=== PATIENT | male | born 1950 | race African-American/Black ===

== ENCOUNTER 2019-09-20 09:13 | Emergency (ER) | payer MEDICARE, OTHER ==
[~2019-09-20] VITALS: Ht 180.3 cm; Wt 68.0 kg
[2019-09-20] MEDS ORDERED: SODIUM CHLORIDE 0.9% 500 ML IV ONE (09:49)
[2019-09-20 10:27] LABS: Albumin 3.5 g/dL (3.4-5.0); BUN/Creatinine Ratio 15.7; Calcium 9.1 mg/dL (8.5-10.1); Potassium 4.1 mmol/L (3.5-5.1)
[2019-09-20 10:31] LABS: Bilirubin, Total 0.8 mg/dL (0.2-1.0); Total Protein 7.2 g/dL (6.4-8.2)
[2019-09-20 13:21] LABS: White Blood Cell 6.5 10^3/uL (4.4-10.8)
[2019-09-20 13:22] LABS: Basophils # (auto) 0.1 uL; Basophils % (auto) 0.8 % (0.0-2.0); Eosinophils # (auto) 0.2 uL; Eosinophils % (auto) 3.6 % (0.0-7.0); Hematocrit 38.7 % (41.0-53.0); Lymphocytes # (auto) 1.4 uL; Lymphocytes % (auto) 22.1 % (10.0-50.0); Mean Corpuscular Hemoglobin 31.6 pg (28.0-32.0); Mean Corpuscular Hgb Conc. 33.5 g/dL (32.0-36.0); Mean Corpuscular Volume 94.3 fL (80.0-100.0); Monocytes # (auto) 0.4 uL; Monocytes % (auto) 6.5 % (0.0-12.0); Neutrophils # (auto) 4.4 uL; Nucleated Red Blood Cells % 0.1 %; Red Blood Cells 4.11 10^6/uL (4.5-5.90); Red Cell Distribution Width 13.2 % (11.8-14.3)
[2019-09-20 13:23] LABS: Platelet Count (auto) 253 10^3/uL (140-450)
[2019-09-20 13:34] VITALS: BP 153/91
[2019-09-20 14:30] LABS: Urine Bacteria NONE SEEN /hpf (None Seen); Urine Blood 1+ /uL (Negative); Urine Mucus FEW (None Seen); Urine Specific Gravity 1.014 (1.001-1.035); Urine WBC 6 /hpf (0 - 3)
== END 2019-09-20 16:06 | disposition home or self-care (01) ==
LOC: ER 09:13 → EDBD 09:13 → ER 16:06
DX: S09.8XXA Other specified injuries of head, initial encounter (principal); G80.9 Cerebral palsy, unspecified; W06.XXXA Fall from bed, initial encounter; Y93.89 Activity, other specified; Y92.092 Bedroom in other non-institutional residence as the place of occurrence of the external cause; Y99.8 Other external cause status
CPT/HCPCS: 36415; 70450; 80053; 81001; 85025; 85027; 99284; J7030

== ENCOUNTER 2019-12-02 17:09 | Inpatient (IN) | payer MEDICARE, OTHER ==
[~2019-12-02] VITALS: Ht 175.3 cm; Wt 60.3 kg
[2019-12-02 17:42] LABS: Basophils # (auto) 0 10 ^3/uL (0-0.2); Basophils % (auto) 0.3 % (0.0-2.0); Eosinophils # (auto) 0 10 ^3/uL (0-0.8); Hematocrit 32.6 % (41.0-53.0); Hemoglobin 10.7 g/dL (13.5-17.5); Lymphocytes # (auto) 0.3 10 ^3/uL (0.4-5.4); Mean Corpuscular Hemoglobin 30.7 pg (28.0-32.0); Mean Corpuscular Hgb Conc. 32.7 g/dL (32.0-36.0); Mean Corpuscular Volume 93.9 fL (80.0-100.0); Monocytes # (auto) 0.5 10 ^3/uL (0-1.3); Monocytes % (auto) 4.6 % (0.0-12.0); Neutrophils # (auto) 10.7 10 ^3/uL (1.6-8.6); Neutrophils % (auto) 92.1 % (37.0-80.0); Platelet Count (auto) 273 10^3/uL (140-450); Red Blood Cells 3.47 10^6/uL (4.5-5.90); Red Cell Distribution Width 13.6 % (11.8-14.3); White Blood Cell 11.7 10^3/uL (4.4-10.8)
[2019-12-02 17:59] LABS: Albumin 2.8 g/dL (3.4-5.0); Calcium 8.6 mg/dL (8.5-10.1); Potassium 3.7 mmol/L (3.5-5.1)
[2019-12-02] MEDS ORDERED: ACETAMINOPHEN 650 MG RECT SUPP PR ONE (18:00)
[2019-12-02 18:01] LABS: BUN/Creatinine Ratio 23.6; Bilirubin, Total 1.3 mg/dL (0.2-1.0); Total Protein 7.3 g/dL (6.4-8.2)
[2019-12-02 18:10] LABS: Urine Bacteria MANY /hpf (None Seen); Urine Blood 2+ /uL (Negative); Urine Hyaline Cast FEW /lpf (0 - 2); Urine Mucus FEW (None Seen); Urine Specific Gravity 1.017 (1.001-1.035); Urine WBC 422 /hpf (0 - 3); Urine WBC Clumps PRESENT /hpf (None Seen)
[2019-12-02] MEDS ORDERED: cefTRIAXone 1GM/50ML D5W 50 ML IV ONE ×2 (18:19→18:30)
[2019-12-02] MEDS ORDERED: DOCUSATE SOD 100 MG CAP PO PRN (19:00)
[2019-12-02] MEDS ORDERED: MORPHINE SULF INJ 2 MG/ML SYRINGE 1ML IV PRN ×2 (19:00)
[2019-12-02] MEDS ORDERED: HYDROcodone-ACET 5/325MG TAB PO PRN (19:00)
[2019-12-02] MEDS ORDERED: METOCLOPRAMIDE HCL 5MG/ml INJ 2ml VIAL IV PRN (19:00)
[2019-12-02] MEDS ORDERED: SODIUM CHLORIDE 0.9% 1,000 ML IV SCH (19:00)
[2019-12-02] MEDS ORDERED: LORazepam 0.5 MG TAB PO PRN (19:00)
[2019-12-02] MEDS ORDERED: ACETAMINOPHEN 500 MG TAB PO PRN (19:00)
[2019-12-02] MEDS ORDERED: ALUM & MAG HYDROX-SIMETH LIQ(MAALOX) 30 ML PO PRN (19:00)
[2019-12-02] MEDS ORDERED: NITROGLYCERIN 0.4 MG SL TAB SL PRN (19:00)
[2019-12-02 19:33] LABS: Magnesium 2.2 mg/dL (1.6-2.6)
[2019-12-02 19:43] LABS: Lactate Dehydrogenase 171 U/L (87-241)
[2019-12-02] MEDS ORDERED: FUROSEMIDE 20 MG/2 ML VIAL IV ONE (19:45)
[2019-12-02 19:50] LABS: CRP High Sensitivity > 19.0 mg/dL (< 0.3)
[2019-12-02 21:15] VITALS: BP 134/89
--- NOTE | 2019-12-02 21:15 | NUR ---
Telemetry admit from ER ANDREIA YOUSSEF admitted to Telemetry unit. Patient oriented to HEIDI DE RN primary RN, unit, room, bed, and unit policies regarding patient care and visiting hours. Patient now on continuous telemetry monitoring, tele box # 3 and telemetry reading on arrival to unit is sinus rhythm at 93 beats per minute. Patient weighed by bedscale and encouraged to call if they need something. All questions and concerns addressed, patient verbalized understanding. Bed in lowest locked position, side rails up x2, call light within reach, bed alarm on. Will round every hour and as needed and continue to monitor. COVID [address]
[2019-12-02] MEDS ORDERED: ALBUTEROL SULF HFA 90MCG INH 200DOSE IN SCH (22:00)
--- NOTE | 2019-12-02 23:28 | NUR ---
Medications Lasix and Normal Saline noted to not have been administered by ER staff. This RN unable to be pulled from [facility] medication Pyxis, will administer ordered late medications and ordered 22:00 medications once medications obtained from [facility] medication pyxis. COVID 19 isolation precautions maintained. Patient shows no s/s of distress, will continue to monitor.
[2019-12-02] MEDS: DOXYCYCLINE 100MG/250ML 250 ML IV SCH (23:30)
[2019-12-03] VITALS: BP 142/82
--- NOTE | 2019-12-03 00:15 | NUR ---
Patient's pulse oxygenation noted to be at 75% on threat monitoring analyst. Patient assessed, patient's hands noted to be cool to touch, pulse oxygenation lead applied to patient's left earlobe, oxygen saturation now 100% on room air. Patient reporting pain, heart rate in 120's on threat monitoring analyst. Will administer pain medication as ordered and continue to monitor.
--- NOTE | 2019-12-03 01:00 | NUR ---
Unable to obtain ordered labs despite multiple attempts throughout shift, lab made aware, emergency department technician Elisabeth verbalized understanding. Will continue to monitor.
--- NOTE | 2019-12-03 01:48 | NUR ---
Spoke with glaze wiper, glaze wiper unable to obtain ordered labs, reports patient "drawing away" and "becoming combative". Documentation Lead states he will endorse lab draw to dayshift glaze wiper to retrieve ordered labs with morning labs. This RN verbalized understanding, will continue care.
[2019-12-03 02:10] LABS: Amphetamine Screen, Urine NEGATIVE (NEGATIVE); Barbiturate Scree,Urine NEGATIVE (NEGATIVE); Benzodiazephine Screen, Urine NEGATIVE (NEGATIVE); Cannabinoid Screen, Urine NEGATIVE (NEGATIVE); Cocaine Screen, Urine NEGATIVE (NEGATIVE); Opiate Scree,Urine NEGATIVE (NEGATIVE); Phencyclidine Screen, Urine NEGATIVE (NEGATIVE)
[2019-12-03 04:00] VITALS: BP 113/59
[2019-12-03] MEDS ORDERED: FUROSEMIDE 20 MG/2 ML VIAL IV SCH (06:00)
--- NOTE | 2019-12-03 06:00 | NUR ---
Unable to obtain morning labs, called lab and spoke with Elisabeth, she verbalized understanding. Will continue care.
--- NOTE | 2019-12-03 06:45 | NUR ---
Per external relations director, patient refusing AM labs, states she will attempt to draw patient one more time prior to leaving unit. Will continue to monitor patient.
--- NOTE | 2019-12-03 07:05 | NUR ---
Closing Note Patient lying in bed, eyes closed, respirations even and unlabored, appears asleep. No s/s of distress. Bed in lowest locked position, side rails up x 2, call light within reach, bed alarm on. Care endorsed to dayshift RN.
--- NOTE | 2019-12-03 07:45 | NUR ---
Able to obtain AM labs with pressure washer Crystal. Ceci CARUSO made aware.
--- NOTE | 2019-12-03 08:00 | NUR ---
OPENING SHIFT NOTE ASSUMED CARE OF PATIENT AWAKE AND ALERT TO SELF. PATIENT NOT TALKING TO STAFF AND IS RESISTIVE TO CARE. PATIENT'S BILATERAL UPPER AND LOWER EXTREMITIES ARE CONTRACTED. RIGHT FOOT AND LEG NOTICED TO BE HOT TO TOUCH WHILE LEFT LEG IS COOL TO TOUCH. BILATERAL PEDAL PULSES PRESENT. PATIENT IS FEBRILE WITH AN AXILLARY TEMP OF 100.7. BED IS IN LOWEST, LOCKED POSITION WITH SIDE RAILS UP X2 AND CALL LIGHT WITHIN REACH. WILL CONTINUE TO MONITOR Q1H AND PRN.
[2019-12-03 08:14] LABS: Basophils # (auto) 0 10 ^3/uL (0-0.2); Basophils % (auto) 0.5 % (0.0-2.0); Eosinophils # (auto) 0 10 ^3/uL (0-0.8); Eosinophils % (auto) 0.1 % (0.0-7.0); Hematocrit 34.2 % (41.0-53.0); Hemoglobin 11.3 g/dL (13.5-17.5); Lymphocytes # (auto) 0.4 10 ^3/uL (0.4-5.4); Lymphocytes % (auto) 4.6 % (10.0-50.0); Mean Corpuscular Hgb Conc. 33.1 g/dL (32.0-36.0); Mean Corpuscular Volume 93.8 fL (80.0-100.0); Monocytes # (auto) 0.5 10 ^3/uL (0-1.3); Monocytes % (auto) 6.8 % (0.0-12.0); Neutrophils # (auto) 6.8 10 ^3/uL (1.6-8.6); Nucleated Red Blood Cells % 0.1 %; Platelet Count (auto) 241 10^3/uL (140-450); Red Blood Cells 3.65 10^6/uL (4.5-5.90); Red Cell Distribution Width 13.5 % (11.8-14.3); White Blood Cell 7.7 10^3/uL (4.4-10.8)
[2019-12-03 08:30] LABS: Albumin 2.7 g/dL (3.4-5.0); Anion Gap 7 (5-15); Blood Urea Nitrogen 18 mg/dL (7-18); Calcium 8.6 mg/dL (8.5-10.1); Carbon Dioxide 25 mmol/L (21-32); Chloride 101 mmol/L (98-107); Glucose 105 mg/dL (74-106); Potassium 3.8 mmol/L (3.5-5.1); Sodium 133 mmol/L (136-145)
[2019-12-03 08:31] LABS: INR 1.13 (0.9-1.15)
[2019-12-03 08:42] LABS: Alanine Aminotransferase 12 U/L (16-61); Alkaline Phosphatase 79 U/L (45-117); Aspartate Aminotransferase 13 U/L (15-37); BUN/Creatinine Ratio 21.7; Bilirubin, Total 1.2 mg/dL (0.2-1.0); Cholesterol 141 mg/dL (< 200); Creatine Kinase IFCC 102 U/L (39-308); GFR African American 118 mL/min; GFR Non-African American 97 mL/min; HDL Cholesterol 47 mg/dL (40-59); LDL Cholesterol 70 mg/dL (< 100); Lactate Dehydrogenase 140 U/L (87-241); Total Protein 7.5 g/dL (6.4-8.2); Triglycerides 106 mg/dL (< 150); Uric Acid 4.2 mg/dL (3.5-7.2)
[2019-12-03 09:00] VITALS: BP 109/59
--- NOTE | 2019-12-03 09:00 | NUR ---
FAMILY SPOKE WITH TIFFANIE WHO IS PATIENT'S CAREGIVER AND NIECE. PATIENT'S BASELINE AT HOME IS CONFUSED BUT HE NORMALLY TALKS, USES HIS RIGHT HAND FOR GROSS MOTOR SKILLS AND EATS WELL.
--- NOTE | 2019-12-03 09:15 | NUR ---
CRITICAL LAB RECEIVED CALL FROM MICRO REGARDING POSITIVE BLOOD CULTURES. WILL NOTIFY
--- NOTE | 2019-12-03 09:21 | NUR ---
PO MEDS HELD PO MEDICATIONS HELD. PATIENT WAS ABLE TO DRINK SMALL SIPS OF WATER SAFELY BUT WHILE ATTEMPTING TO FEED PATIENT APPLESAUCE, PATIENT WAS LETHARGIC, UNABLE TO FOLLOW MY COMMAND TO SWALLOW, AND WOULD FALL ASLEEP. WILL PLACE SWALLOW EVAL AND NOTIFY MD OF MEDICATIONS HELD.
[2019-12-03] MEDS: DOXYCYCLINE 100MG/250ML 250 ML IV SCH ×2 (09:24→23:35)
[2019-12-03] MEDS: ENOXAPARIN SOD 40 MG/0.4 ML SYRINGE SC SCH (09:25)
--- NOTE | 2019-12-03 09:51 | NUR ---
SPOKE WITH BEULAH KELLY MADE AWARE OF PATIENT'S POSITIVE BLOOD CULTURES AND PO MEDS BEING HELD.
[2019-12-03] MEDS ORDERED: CHOLECALCIFEROL (VITD3) 1,000IU=25mCg TAB PO SCH (10:00)
[2019-12-03] MEDS ORDERED: ASCORBIC ACID 1,000 MG TAB PO SCH (10:00)
[2019-12-03] MEDS ORDERED: ZINC SULFATE 220mg CAP or TAB PO SCH (10:00)
--- NOTE | 2019-12-03 11:00 | NUR ---
FAMILY RECEIVED MULTIPLE CALLS FROM MANY DIFFERENT FAMILY MEMBERS. EXPLAINED TO THEM THAT THE NEXT OF KIN LISTED IS TIFFANIE, THE PATIENT'S NIECE AND CAREGIVER, AND SHE IS WHO THE HOSPITAL STAFF WILL BE SPEAKING TO REGARDING MR. YOUSSEF'S CARE. AUBREE, THE PATIENT'S DAUGHTER, INSISTS I TALK TO HER BECAUSE "TIFFANIE IS A DRUNK AND OVEREXAGGERATES AND I CAN'T BE TALKING TO HER WHEN SHE'S DRINKING". AUBREE ADVISED BY THIS NURSE TO CONTACT FAMILY MEMBER AND OBTAIN THE PASSWORD SO SHE MAY RECEIVE INFORMATION OVER THE PHONE.
[2019-12-03] MEDS: PIPERACILLIN-TAZOB 3.375GM 100 ML IV SCH ×2 (11:57→17:34)
--- NOTE | 2019-12-03 12:00 | NUR ---
PO INTAKE PATIENT IS MUCH MORE AWAKE AND COOPERATIVE. PATIENT TOLERATED DRINKING JUICE AND EATING JELLO.
--- NOTE | 2019-12-03 12:22 | NUR ---
MEATAL CARE MEATAL CARE PROVIDED TO PATIENT. PATIENT IS HAVING FOUL SMELLING PENILE DISCHARGE. GLANS PENIS IS PAINFUL TO TOUCH. WILL CONTINUE TO MONITOR.
[2019-12-03] MEDS: SODIUM CHLORIDE 0.9% 1,000 ML IV SCH (12:44)
--- NOTE | 2019-12-03 12:57 | NUR ---
FAMILY AFTER DISCUSSING CONCERNS WITH TIFFANIE REGARDING AUBREE'S PREVIOUS STATMENTS AND TRYING TO SET UP ONE CONTACT IN THE FAMILY I RECEIVED A VERBALLY ABUSIVE CALL FROM DAUGHTER AUBREE ASKING "WHY ARE YOU LYING ON ME. YOU REALLY WANT TO BE FUCKING MAKING UP STORIES DON'T YOU?" MANY OTHER PROFANITIES WERE YELLED. INFORMED FAMILY THAT THE HEALTHCARE STAFF WILL BE SPEAKING WITH TIFFANIE ONLY FROM NOW ON. SAMPLE SELECTOR MADE AWARE OF SITUATION.
--- NOTE | 2019-12-03 15:20 | NUR ---
Resumed care of patient, SBAR received from Lucila Graves RN Fall precautions in place, breaks locked, bed in lowest position side rails up x2 bed alarm semiconductor wafers marker light in patients hand. Will continue to monitor.
--- NOTE | 2019-12-03 15:24 | NUR ---
TRANSFER OF CARE CARE ENDORSED TO HERMELINDA CARUSO.
[2019-12-03 17:00] VITALS: BP 138/67
[2019-12-03 22:00] VITALS: BP 139/71
[2019-12-04] MEDS: PIPERACILLIN-TAZOB 3.375GM 100 ML IV SCH ×5 (00:42→23:45)
[2019-12-04 05:00] VITALS: BP 158/80
[2019-12-04] MEDS: SODIUM CHLORIDE 0.9% 1,000 ML IV SCH ×2 (05:17→15:14)
[2019-12-04 05:56] LABS: Basophils # (auto) 0 10 ^3/uL (0-0.2); Basophils % (auto) 0.7 % (0.0-2.0); Eosinophils # (auto) 0.1 10 ^3/uL (0-0.8); Eosinophils % (auto) 1.9 % (0.0-7.0); Hematocrit 30.8 % (41.0-53.0); Hemoglobin 10.3 g/dL (13.5-17.5); Lymphocytes # (auto) 0.5 10 ^3/uL (0.4-5.4); Lymphocytes % (auto) 12.9 % (10.0-50.0); Mean Corpuscular Hemoglobin 31.5 pg (28.0-32.0); Mean Corpuscular Hgb Conc. 33.6 g/dL (32.0-36.0); Mean Corpuscular Volume 93.7 fL (80.0-100.0); Monocytes # (auto) 0.4 10 ^3/uL (0-1.3); Monocytes % (auto) 10.4 % (0.0-12.0); Neutrophils % (auto) 74.1 % (37.0-80.0); Nucleated Red Blood Cells % 0.2 %; Platelet Count (auto) 226 10^3/uL (140-450); Red Blood Cells 3.29 10^6/uL (4.5-5.90); Red Cell Distribution Width 13.8 % (11.8-14.3); White Blood Cell 4.1 10^3/uL (4.4-10.8)
[2019-12-04 06:18] LABS: Albumin 2.5 g/dL (3.4-5.0); Calcium 8.7 mg/dL (8.5-10.1); Potassium 3.5 mmol/L (3.5-5.1)
[2019-12-04 06:23] LABS: BUN/Creatinine Ratio 27.1; Total Protein 6.8 g/dL (6.4-8.2)
--- NOTE | 2019-12-04 08:33 | NUR ---
AIR MATTRESS: Specialty air mattress ordered at [facility],Reference # [id number]; ETA 12/04/19 @1431, Call [facility] if need to follow up at [phone] Addendum: 12/04/19 at 0834 by Yuko Espinoza RN Amended: Links added.
[2019-12-04 08:53] VITALS: BP 119/69
[2019-12-04] MEDS: DOXYCYCLINE 100MG/250ML 250 ML IV SCH (09:37)
[2019-12-04] MEDS: ENOXAPARIN SOD 40 MG/0.4 ML SYRINGE SC SCH (09:37)
--- NOTE | 2019-12-04 10:55 | NUR ---
ROBIN YEH MANAGER HOTEL AT BEDSIDE.
[2019-12-04 13:00] VITALS: BP 119/74
--- NOTE | 2019-12-04 13:46 | NUR ---
WOUND CARE NOTE: Wound care in to see patient per wound care request regarding low Benjamin score of 11,putting patient to high risk for skin breakdown. Patient is 69 years old male with admitting diagnosis of Sepsis, possibly secondary to Gm positive Pneumonia. Patient with history of Cerebral palsy, Dementia. Patient is resting in bed in Rm. 203. Patient is awake, appears to be in no pain using Watson Weathers Faces Pain Scale. He need assistance in turning and repositioning. Skin assessment done with the assistance of patient's nurse, SHADY Gar. No open wound noted other than intact pink scar tissue and scabs to patient's Lt upper shoulder and back, dry scabs/dry blood blisters (0.5x0.8cm) to L dorsal foot at base of L 5th toe, L 2nd toe and Rt foot toe; area is clean and dry, left open to air. No pressure injury noted, however patient noted with intact pink scar tissue to sacrum. Patient is receiving BID/PRN cleaning and application of Barrier cream to sacral buttocks as preventative. Patient tolerated well and repositioned for comfort facing his Rt side, redistributed pressure points with pillows. SHADY Gar at bedside. RECOMMENDATION: Nursing to continue with BID/PRN cleaning and application of Barrier cream to sacral, buttocks as preventative, Dietary consult, frequent turning and repositioning as condition permits, redistribute pressure points with pillows, elevate heels on pillows, air mattress (ordered), continue monitoring by wound care while patient is hospitalized. Addendum: 12/04/19 at 1833 by Yuko Espinoza RN Amended: Links added.
[2019-12-04 16:46] VITALS: BP 116/73
--- NOTE | 2019-12-04 19:30 | NUR ---
Opening Shift Note Assumed care of patient, awake and alert. No S/S of distress/SOB or pain. Insructed on POC and to callfor assist PRN, will continue to monitor for changes Q1hr and PRN. Fall and safety precautions in place. Call light within reach.
[2019-12-05 05:00] VITALS: BP 148/87
[2019-12-05] MEDS: SODIUM CHLORIDE 0.9% 1,000 ML IV SCH ×2 (05:29→16:46)
[2019-12-05] MEDS: PIPERACILLIN-TAZOB 3.375GM 100 ML IV SCH (05:29)
--- NOTE | 2019-12-05 07:59 | NUR ---
Nutrition Note: Nutrition consult for low bs and alb. pt`s alb 2.7 and skin intact. will F/U 12/05
[2019-12-05 09:00] VITALS: BP 127/71
[2019-12-05] MEDS: ENOXAPARIN SOD 40 MG/0.4 ML SYRINGE SC SCH (09:54)
[2019-12-05] MEDS: amLODIPine BESYLATE 5 MG TAB PO SCH (09:54)
[2019-12-05 13:54] VITALS: BP 135/72
[2019-12-05 17:18] VITALS: BP 126/72
[2019-12-05 22:00] VITALS: BP 140/75
--- NOTE | 2019-12-06 | NUR ---
HYGIENE Patient noted to have had large BM. Patient cleaned of BM, complete linen change done, and gown changed. Patient repositioned in bed for comfort, tolerated well. Will continue to monitor
[2019-12-06 05:00] VITALS: BP 147/88
[2019-12-06] MEDS: SODIUM CHLORIDE 0.9% 1,000 ML IV SCH (06:34)
[2019-12-06 06:46] LABS: Basophils # (auto) 0 10 ^3/uL (0-0.2); Basophils % (auto) 1.1 % (0.0-2.0); Eosinophils # (auto) 0.2 10 ^3/uL (0-0.8); Eosinophils % (auto) 3.9 % (0.0-7.0); Hematocrit 30.4 % (41.0-53.0); Hemoglobin 10.3 g/dL (13.5-17.5); Lymphocytes # (auto) 1.3 10 ^3/uL (0.4-5.4); Lymphocytes % (auto) 33.8 % (10.0-50.0); Mean Corpuscular Hemoglobin 31.4 pg (28.0-32.0); Mean Corpuscular Hgb Conc. 33.9 g/dL (32.0-36.0); Mean Corpuscular Volume 92.6 fL (80.0-100.0); Monocytes # (auto) 0.4 10 ^3/uL (0-1.3); Monocytes % (auto) 11.2 % (0.0-12.0); Nucleated Red Blood Cells % 0.1 %; Platelet Count (auto) 257 10^3/uL (140-450); Red Blood Cells 3.28 10^6/uL (4.5-5.90); Red Cell Distribution Width 13.6 % (11.8-14.3)
[2019-12-06 07:13] LABS: Albumin 2.4 g/dL (3.4-5.0); Calcium 8.5 mg/dL (8.5-10.1); Potassium 4.2 mmol/L (3.5-5.1)
[2019-12-06 07:17] LABS: BUN/Creatinine Ratio 17.6; Bilirubin, Total 0.6 mg/dL (0.2-1.0); Total Protein 6.3 g/dL (6.4-8.2)
--- NOTE | 2019-12-06 08:15 | NUR ---
Opening Shift Note Assumed care of patient, awake and alert. No S/S of distress/SOB or pain. Bed in lowest/locked position, bed rails up x2, call light within reach. Instructed on POC and to call for assist PRN. Will continue to monitor for changes Q1hr and PRN.
[2019-12-06] MEDS: cefTRIAXone 1GM/50ML D5W 50 ML IV SCH (09:16)
[2019-12-06 09:40] VITALS: BP 151/84
[2019-12-06] MEDS ORDERED: CEFTRIAXONE SODIUM 2 GM in D5W 5% 50 ML IV SCH (10:00)
--- NOTE | 2019-12-06 10:20 | NUR ---
MD ROUNDS DR VAZQUZE AT BEDSIDE DISCUSSING POC WITH PATIENT. NO NEW ORDERS RECEIVED AT THIS TIME. WILL CONTINUE TO MONITOR
[2019-12-06] MEDS: amLODIPine BESYLATE 5 MG TAB PO SCH (10:25)
[2019-12-06] MEDS: ENOXAPARIN SOD 40 MG/0.4 ML SYRINGE SC SCH (10:25)
--- NOTE | 2019-12-06 11:00 | NUR ---
IV insertion IV access obtained, via clean sterile technique by inserting 22 gauge catheter at [facility] after 2 attempts. IV secured properly. No trauma to site. Patient tolerated well. IV removal IV DC'd with clean sterile technique, catheter fully intact. Pressure dressing applied to site. Patient tolerated well.
--- NOTE | 2019-12-06 12:02 | NUR ---
Nutrition consult/assessment Notes please see attached link for complete assessment [employer] needs IBW 72 [id number] kcals (25-30 kcal/kgIBW), Est Protein needs: 72-86 gms/day (1.0-1.2 gm/kgIBW). Will continue to monitor and reassess prn. Addendum: 12/06/19 at [address] Amended: Links added.
[2019-12-06 13:29] VITALS: BP 155/90
--- NOTE | 2019-12-06 14:00 | NUR ---
BENNETT CARE BENNETT CARE TO PATIENT. SECURED BENNETT TO RIGHT THIGH. PATENT, NO KINKS, FREE TO GRAVITY, PATIENT TOLERATED WELL. PATIENT POSITIONED ON LEFT SIDE
--- NOTE | 2019-12-06 14:57 | NUR ---
assessment re: ss consult additional resources and dc planning Patient is a 69 year old male who is confused. Per patients niece and caregiver Edwige prior to admission patient lived home with her and functioned with her assistance. Edwige informed me patient has a fww, rollator, wheelchair, and hospital bed for home use. Patients PCP is Dr Tsang. Edwige informed me patient has home health [place] [phone]. Edwige informed me patient has an advanced directive and POA. I informed Edwige of patients ss consult for dc planning and patient needing additional resources. Per Edwige she wanted to know about free caregiver for patient through insurance. I informed Edwige insurance does not pay for caregiving. I offered IHSS and Edwige informed me patient does not qualify for IHSS. I also offered private pay caregiver resources and Edwige declined resources. I informed Edwige that i would get a resumption order for home health. Edwige agreed. I also informed Edwige about respite care for a week for patient at a cost. Edwige declined. Edwige verbalized understanding and agreed to discharge plan home. Addendum: 12/06/19 at 1504 by Юлия ALMEIDA Amended: Links added.
[2019-12-06 16:30] VITALS: BP 150/89
--- NOTE | 2019-12-06 16:31 | NUR ---
Pt worked on bedside ther ex prior to getting out of bed for ambulation. Pt is mod/max A for bed mobs and ambulation. Pt recd PNF activity for bilat UE's and LE's x 10 reps each. Addendum: 12/06/19 at 1632 by Sosa Cee PT Amended: Links added.
--- NOTE | 2019-12-06 17:45 | NUR ---
BLOOD PRESSURE CALLED DR VAZQUEZ RE: PATIENT B/P 150/89. NEW ORDERS RECEIVED/ WILL CARRY OUT. WILL CONTINUE TO MONITOR
[2019-12-06] MEDS ORDERED: hydrALAZINE HCL 20 MG/ML VL IV PRN ×2 (18:15)
[2019-12-06 22:00] VITALS: BP 113/76
[2019-12-07 05:00] VITALS: BP 125/70
--- NOTE | 2019-12-07 07:40 | NUR ---
Opening shift note: Assumed care of patient from NOC RN Gosia. Patient is AOx4, so signs and symptoms of distress, SOB, or pain noted at this time. Bed is in lowest locked position, side rails up x2, bed alarm on, and call light is within reach. Updated patient on plan of care and patient verbalized understanding. I will continue to monitor Q1hr and PRN.
[2019-12-07 08:00] VITALS: BP 134/70
[2019-12-07] MEDS: cefTRIAXone 1GM/50ML D5W 50 ML IV SCH (09:48)
[2019-12-07] MEDS: ENOXAPARIN SOD 40 MG/0.4 ML SYRINGE SC SCH (09:48)
[2019-12-07] MEDS: amLODIPine BESYLATE 5 MG TAB PO SCH (09:54)
--- NOTE | 2019-12-07 11:15 | NUR ---
Physician rounding Dr. Pnada at bedside. Updated him on patient status. New orders received, I will follow through with orders.
[2019-12-07 12:00] VITALS: BP 127/71
[2019-12-07] MEDS ORDERED: LEVO500T21 PO (12:44)
[2019-12-07 15:00] VITALS: BP 127/71
--- NOTE | 2019-12-07 15:26 | NUR ---
D/C Planning Per consult to resume service. Patient is on service with [facility]. Faxed clinical information to [facility]. Per Tara with [facility] Ph:) they will resume service within 24-48hrs upon d/c day.
[2019-12-07 17:00] VITALS: BP 110/69
--- NOTE | 2019-12-07 17:18 | NUR ---
Discharge instructions given as ordered. Encourage to follow up with PMD as instructed. All questions and concerns addressed. Patient verbalized understanding. IV removed with catheter intact, pressure dressing applied, erickson catheter removed. Telemetry unit returned to ICU. Patient taken to vehicle via wheelchair with all personal belongings, accompanied by staff member. No distress noted at time of departure.
== END 2019-12-07 17:18 | disposition home health service (06) | DRG 698 ==
LOC: EDBD 17:09 → ER 17:09 → EDUNIT# 17:09 → TELE 17:10 → TELE-EAST 21:05 → TELE-CENTR 12-03 15:42
PROVIDERS: ADMIT Hospitalist; ATTEND Internal Medicine
DX: T83.511A Infection and inflammatory reaction due to indwelling urethral catheter, initial encounter (principal); A41.50 Gram-negative sepsis, unspecified; G93.41 Metabolic encephalopathy; N17.0 Acute kidney failure with tubular necrosis; E44.0 Moderate protein-calorie malnutrition; N30.00 Acute cystitis without hematuria; E87.1 Hypo-osmolality and hyponatremia; Z68.1 Body mass index [BMI] 19.9 or less, adult; D72.810 Lymphocytopenia; F03.90 Unspecified dementia, unspecified severity, without behavioral disturbance, psychotic disturbance, mood disturbance, and anxiety; I10 Essential (primary) hypertension; Z74.01 Bed confinement status; Z91.81 History of falling; D50.9 Iron deficiency anemia, unspecified; Z03.818 Encounter for observation for suspected exposure to other biological agents ruled out; G80.9 Cerebral palsy, unspecified
CPT/HCPCS: 36415; 51702; 71045; 80053; 80061; 80307; 81001; 82550; 82728; 83036; 83605; 83615; 83735; 83880; 84443; 84484; 84550; 85025; 85379; 85610; 85652; 85730; 86141; 87040; 87070; 87077; 87086; 87186; 87804; 87880; 93970; 96365; 97110; 97116; 97163; 97530; G0378; J0696; J2543; J3490; J7060